=== PATIENT | female | born 1975 | race Caucasian/White ===

== ENCOUNTER 2018-04-20 00:27 | Emergency (ER) | payer SELFPAY ==
[~2018-04-20] VITALS: Ht 154.9 cm; Wt 100.7 kg
[2018-04-20 01:22] VITALS: BP 134/92; Ht 154.9 cm; Wt 100.7 kg
== END 2018-04-20 02:34 | disposition home or self-care (01) ==
LOC: ED 00:27
DX: G89.29 Other chronic pain (principal); M54.9 Dorsalgia, unspecified
CPT/HCPCS: J3010; Q0162

== ENCOUNTER 2019-07-20 12:27 | Inpatient (IN) | payer OTHER ==
[~2019-07-20] VITALS: Ht 154.9 cm; Wt 108.0 kg
[2019-07-20 12:29] VITALS: Ht 154.9 cm; Wt 108.0 kg
--- NOTE | 2019-07-20 12:32 | NUR ---
PLACED IN BED 3 FOR EVAL. EKG TO BE COMPLETED.
--- NOTE | 2019-07-20 13:00 | NUR ---
PT C/O SOB W/ NAUSEA 20 MIN MUSIC DEPARTMENT CHAIR, PER PT "FEELS LIKE SOMEHTHING STUCK IN MY THROAT LIKE IF YOU CAN'T SWALLOW A VITAMIN" PT DENIES ANY CHEST PAIN AND/OR EPISODES OF VOMITING, PT AAOX4 SPEAKING FULL CLEAR SENTENCES, RESPS E/U, SKIN PINK DRY AND WARM, NO S/S RESP DISTRESS NOTED AT THIS TIME, PT IN NAD WITH AT BEDSIDE
--- NOTE | 2019-07-20 13:19 | NUR ---
PT PROVIDED VERBAL CONSENT TO ADMIN ATIVAN WITHOUT URINE HCG, PT VERBALIZED UDNERSTANDING
[2019-07-20 13:30] LABS: BASOPHIL % 0.5 % (0-2); PLATELET COUNT 319 x10^3mcL (130-400)
[2019-07-20 13:31] LABS: RED CELL DISTRIBUTION WIDTH 17.4 % (11.5-14.5)
[2019-07-20 13:37] LABS: CALCIUM 8.5 mg/dL (8.5-10.1); CARBON DIOXIDE 24.3 mmol/L (21-32); CHLORIDE SERUM 103 mmol/L (98-107); CREATININE SERUM 0.9 mg/dL (0.6-1.0); GFR1 > 60 mL/min; GLUCOSE SERUM 200 mg/dL (74-106); POTASSIUM SERUM 3.4 mmol/L (3.5-5.1); SODIUM SERUM 137 mmol/L (136-145)
[2019-07-20 13:41] LABS: ALBUMIN 3.3 g/dL (3.4-5.0); ALKALINE PHOSPHATASE 105 U/L (46-116); ALT/SGPT 81 U/L (14-59); AST/SGOT 46 U/L (15-37); BILIRUBIN TOTAL 0.2 mg/dL (0.20-1.00); CHOLESTEROL 180 mg/dL (<200); HDL CHOLESTEROL 47 mg/dL (40-60); PHOSPHOROUS 1.7 mg/dL (2.5-4.9); TOTAL PROTEIN, SERUM 7.3 g/dL (6.4-8.2); URIC ACID 4.1 mg/dL (2.6-6.0)
--- NOTE | 2019-07-20 14:45 | NUR ---
PT RESTING IN POSITION OF COMFORT TALKING ON THE PHONE IN NAD, RESPS E/U, VSS
--- NOTE | 2019-07-20 15:41 | NUR ---
REPORT GIVEN TO NADIA RN WHO IS RESUMING CARE OF PT AT THIS TIME
[2019-07-20 16:17] VITALS: BP 144/99
--- NOTE | 2019-07-20 16:25 | NUR ---
RECEIVED PT FROM ER, PT ADMIT FRO CHEST PAIN, A/O X4, VERBAL RESPONSIVE, LUNG SOUND CLEAR BILATERAL, NO COUGH, NO SOB, PT IS ON TELE 12, NSR TO ST. HR BETWEEN 95-105, C/O MILD CHEST PRESSURE 2/10, BOWEL SOUND PRESENT ALL 4 QUADRANTS, NO DISTENTION, NO TENDER. PEDAL PULSE PRESENT BOTH FEET, NO EDEMA, IV AT LEFT AC, NO LEAKING, NO INFILTRATION. ALL ADLS ASSIST, ALL NEED MET, CALL LIGHT IN REACH, WILL CONTINUE TO MONITOR.
--- NOTE | 2019-07-20 16:34 | NUR ---
RECEIVED REPORT FROM RESOURCE NURSE BENJAMIN RN, PT IN BED, IN NO ACUTE DISTRESS, REPORTED PAIN 7/10 TO BACK AND NECK, MEDICATED PER EMAR PRN ORDER, TOLERATED WELL, IV PATENT AND FLUSHING WELL, DRESSING CDI, ALL NEEDS ADDRESSED AT THIS TIME, SAFETY PROTOCOLF FOLLOWED, CONTINUE TO MONITOR
--- NOTE | 2019-07-20 17:18 | NUR ---
VOID X 1, BACK TO BED, IN NO ACUTE DISTRESS, DENIED PAIN/LAWS/PALPITATION AT THIS TIME, DENIED N/V/D, TELEL 12, NSR, ABD ROUND, BS ACTIVE X 4, IV PATENT AND FLUSHIGN WELL, DRESSING CDI, SKIN C/D/W, ALL NEEDS ADDRESSED AT THIS TIME, SAFETY PROTOCOL FOLLOWED, WILL ENDORSE TO ONCOMING RN
[2019-07-20 17:45] LABS: T3 TOTAL 1.33 ng/mL
[2019-07-20 17:47] LABS: FREE T4 0.97 ng/dL (0.76-1.46); FREE THYROXINE INDEX 2.8 ug/dL (1.4-4.5); T4(THYROXINE) 9.4 ug/dL (4.7-13.3)
--- NOTE | 2019-07-20 19:27 | NUR ---
SHIFT REASSESMENT DONE.PATIENT A/O X 4.BREATHING EASY.AMBULATORY RESTROOM,VISITOR AT BEDSIDE,SUPPORTIVE OF CARE.HEPLOCK LAC.INTACT.TELE 12 SR.NO CHEST PAIN AT THIS TIME.SKIN INTACT.NO PAIN AT THIS TIME.CALL LIGHT IN REACH.
--- NOTE | 2019-07-20 20:57 | NUR ---
PM MEDS GIVEN WITHOUT ANY INCIDENT.BLOOD SUGAR 125,SAYS SHE IS NOT DIABETIC,AIC IS 6.5,MADE HER AWARE.
[2019-07-20 21:22] VITALS: BP 126/77
--- NOTE | 2019-07-21 00:30 | NUR ---
CHECKED AT THIS TIME,SLEEPING,CALL LIGHT IN REACH.
[2019-07-21 05:35] VITALS: BP 134/82
--- NOTE | 2019-07-21 05:57 | NUR ---
I AND O MEASURED.AM LAB WORKS DONE AT THIS TIME.NO DISTRESS THIS SHIFT.NO CHEST PAIN.
[2019-07-21 06:23] LABS: BASOPHIL % 0.9 % (0-2); PLATELET COUNT 306 x10^3mcL (130-400)
[2019-07-21 06:49] LABS: RED CELL DISTRIBUTION WIDTH 17.5 % (11.5-14.5)
--- NOTE | 2019-07-21 07:10 | NUR ---
RECEIVED REPORT FROM MORENA SMITH, PT IN BED IN NO ACUTE DISTRESS
--- NOTE | 2019-07-21 07:15 | NUR ---
PT IN BED, AXOX4, VERBAL, ABLE TO MAKE NEEDS KNOWN, CALM AND COPPERATIVE, NO FACIAL DROOP/SLURRED SPEECH, DENIED LAWS/PAIN/PALPITATION, DENIED N/V/D, RESP EVEN, NO SOB/COUGH, CHEST RISE SYMMETRICALLY, LUNG CTA, TELE #12, NSR, ABD ROUND AND NON-TENDER TO TOUCH, BS ACTIVE X 4, PALP PULSES, CAP REFILL < 3S, AMBULATORY, CONTINENT, IV PATENT AND FLUSHING WELL, HEPLOCKED, DRESSING CDI, SKIN C/D/W, SEE SKIN ASSESSMENT, ALL NEEDS ADDRESSED AT THIS TIME, SAFETY PROTOCOL FOLLOWED, CONTINUE TO MONITOR
[2019-07-21 07:43] VITALS: BP 131/93
[2019-07-21 07:56] LABS: CALCIUM 8.4 mg/dL (8.5-10.1); CARBON DIOXIDE 22.8 mmol/L (21-32); CHLORIDE SERUM 106 mmol/L (98-107); CREATININE SERUM 0.7 mg/dL (0.6-1.0); GFR1 > 60 mL/min; GLUCOSE SERUM 87 mg/dL (74-106); MAGNESIUM 1.9 mg/dL (1.8-2.4); PHOSPHOROUS 3.5 mg/dL (2.5-4.9); POTASSIUM SERUM 3.8 mmol/L (3.5-5.1); SODIUM SERUM 141 mmol/L (136-145)
--- NOTE | 2019-07-21 10:47 | NUR ---
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
[2019-07-21 10:58] VITALS: BP 138/76
[2019-07-21 11:46] VITALS: BP 107/64
--- NOTE | 2019-07-21 13:05 | NUR ---
ECHO DONE AT BEDSIDE, TOLERATED WELL, FAMILY AT BEDSIDE, CONTINUE TO MONITOR
--- NOTE | 2019-07-21 13:22 | NUR ---
PT REPORTED NAUSEATED AFTER EATING LUNCH, MEDICATED PER PRN VIA EMAR, TOLERATED WELL, NO ASE NOTED AT THIS TIME, PT IN BED IN NO ACUTE DISTRESS
--- NOTE | 2019-07-21 13:40 | NUR ---
PT REPORTED LAWS AND NACK PAIN, 7/10, DULL, MEDICATED PER EMAR PRN ORDER, TOLERATED WELL, NO ASE NOTED AT THIS TIME, PT IN BED IN NO ACUTE DISTRESS, CONTINUE TO MONITOR
--- NOTE | 2019-07-21 13:52 | NUR ---
PT WENT FOR XRAY TAKEN TO NECK AREA VIA WC, ASSISTED BY ROLLER HELPER, PT IN NO ACUTE DISTRESS
[2019-07-21 16:17] VITALS: BP 123/79
--- NOTE | 2019-07-21 17:09 | NUR ---
PT REPORTED NAUSEATED AND REQUESTED MED PRIOR MEAL, MEDICATED PER EMAR PRN ORDER, TOLERATED WELL, NO ASE NOTED AT THIS TIME, PT IN BED IN NO ACUTE DISTRESS, CONTINUE TO MONITOR
[2019-07-21] MEDS ORDERED: PHARMASSURE VI500 MG PO (17:11)
[2019-07-21] MEDS ORDERED: FER300 PO (17:11)
[2019-07-21] MEDS ORDERED: METFORMIN HYDR500 M1 PO (17:13)
[2019-07-21] MEDS ORDERED: PRI20 PO (17:31)
--- NOTE | 2019-07-21 19:25 | NUR ---
FOR DC.ALL PAPERWORKS DONE AND SIGNED,TELE 12 REMOVED AND RETURNED.HEPLOCK REMOVED.WILL BE AIR CONDITIONING UNIT ASSEMBLER BY FRIEND.
--- NOTE | 2019-07-21 19:45 | NUR ---
DC NOW VIA W/C IN STABLE CONDITION,ALL PAPERWORKS GIVEN.
== END 2019-07-21 19:44 | disposition home or self-care (01) | DRG 243 ==
LOC: ED 12:27 → DU 15:05
PROVIDERS: Emergency Medicine; ADMIT Internal Medicine
DX: K21.9 Gastro-esophageal reflux disease without esophagitis (principal); E44.1 Mild protein-calorie malnutrition; E83.39 Other disorders of phosphorus metabolism; Z68.41 Body mass index [BMI] 40.0-44.9, adult; D50.9 Iron deficiency anemia, unspecified; E11.9 Type 2 diabetes mellitus without complications; F12.90 Cannabis use, unspecified, uncomplicated; M62.838 Other muscle spasm; F41.9 Anxiety disorder, unspecified; F43.10 Post-traumatic stress disorder, unspecified; E78.5 Hyperlipidemia, unspecified; E87.6 Hypokalemia; Z90.49 Acquired absence of other specified parts of digestive tract; Z72.89 Other problems related to lifestyle; Z79.899 Other long term (current) drug therapy
CPT/HCPCS: 82962; 83880; 84439; G0378; J2405; Q0092; Q0162